=== PATIENT | female | born 1975 | race Caucasian/White ===

== ENCOUNTER 2016-10-13 15:44 | Emergency (ER) | payer BC, OTHER ==
[2016-10-13 16:00] VITALS: TEMP 98.2
--- NOTE | 2016-10-13 17:06 | RAD ---
EXAM: Elbow,Left 3 Views CLINICAL INDICATION: 41-year-old female status post fall. TECHNIQUE: Three views of the LEFT elbow were obtained in AP, lateral and oblique projections. COMPARISON: None. FINDINGS: Tiny linear lucency is identified traversing the coronoid process, however without associated joint effusion may represent artifact of positioning versus nondisplaced fracture. There is no gross fracture or dislocation. The joint spaces are preserved. No soft tissue abnormalities are seen. IMPRESSION: Tiny linear lucency at the level of the coronoid process as detailed above. Electronically signed by: Chantell Knight MD 10/13/2016 5:05 PM CDT
--- NOTE | 2016-10-13 17:50 | ED.PDOC ---
History of Present Illness - General Chief Complaint: Trauma Stated Complaint: elbow pain Time Seen by Provider: 10/13/16 17:43 Exam Limitations: no limitations - History of Present Illness Initial Comments: Jessica Gale 41 y/o female stated while walking and talking to her friend tripped on a step then fell on her left arm;No head/neck hip pain.Had been hurting on her elbow since the incident [id number]/10/17.Decided to get checked here in [place]. Occurred: yesterday Pain - Upper Extremity: moderate: Elbow, left Method of Injury: fell Improving Factors: rest Worsening Factors: movement Allergies/Adverse Reactions: Allergies Aspirin Allergy (Verified 10/13/16 16:01) Erythromycin Allergy (Verified 10/13/16 16:01) Sulfa Antibiotics Allergy (Verified 10/13/16 16:01) Home Medications: Ambulatory Orders Acetaminophen W/ Codeine [Tylenol w/Codeine 300-30 mg] 1 tab PO TID PRN #20 tab 10/13/16 Lisinopril & Hydrochlorothiazi [Lisinopril/Hctz 20-12.5 mg] 1 tab PO DAILY 10/13 Review of Systems - Review of Systems Constitutional: States: no symptoms reported EENTM: States: no symptoms reported Respiratory: States: no symptoms reported Cardiology: States: no symptoms reported Gastrointestinal/Abdominal: States: no symptoms reported Genitourinary: States: no symptoms reported Musculoskeletal: States: see HPI Skin: States: no symptoms reported Neurological: States: no symptoms reported Endocrine: States: no symptoms reported Past Medical History (General) - Patient Medical History Hx Hypertension: Yes Surgical History: no surgical history - Vaccination History Hx Tetanus, Diphtheria Vaccination: Yes Hx Influenza Vaccination: Yes - Social History Hx Tobacco Use: No Hx Alcohol Use: No Hx Substance Use: No Hx Substance Use Treatment: No Hx Depression: No - Activities of Daily Living Patient Lives Alone: No - family Hospice Agency (if applicable):: None - Female History Patient is a Female of Child Bearing Age (10 -59 yrs old): No Family Medical History - Family History Mother Family History: No Known Physical Exam - Physical Exam General Appearance: Alert, No apparent distress Eyes, Ears, Nose, Throat Exam: PERRL/EOMI, normal ENT inspection Neck: non-tender, full range of motion, supple, normal inspection Cardiovascular/Respiratory: regular rate, rhythm, no M/R/G, normal peripheral pulses, no JVD Abdominal Exam: non-tender, no organomegaly Back Exam: normal inspection, no CVA tenderness, no vertebral tenderness Shoulder Exam: normal inspection, no evidence of injury Elbow/Forearm Exam: bone tenderness, limited ROM - left elbow, soft tissue tenderness, swelling Wrist Exam: normal inspection, no evidence of injury Hand Exam: normal inspection, no evidence of injury Neuro/Tendon: normal sensation, normal motor functions, no evidence tendon injury Mental Status: alert, oriented x 3 Progress - EKG/XRAY/CT XRAY: elbow - linear lucency left elbow no fat pad sign Departure - Departure Clinical Impression: Fall against object Qualifiers: Encounter type: initial encounter Qualifier Code: (W18.09XA) Striking against other object with subsequent fall, initial encounter Contusion of elbow, left Qualifiers: Encounter type: initial encounter Qualifier Code: (S50.02XA) Contusion of left elbow, initial encounter Time of Disposition: 17:59 Disposition: Discharge to Home or Self Care Condition: Good Departure Forms: ED Discharge - Pt. Copy, Patient Portal Self Enrollment Instructions: DI for Contusion Referrals: LAURA GRIER [Primary Care Provider] - 1-2 Weeks Prescriptions: Acetaminophen W/ Codeine [Tylenol w/Codeine 300-30 mg] 1 tab PO TID PRN #20 tab PRN Reason: Pain Home Medications: Ambulatory Orders Acetaminophen W/ Codeine [Tylenol w/Codeine 300-30 mg] 1 tab PO TID PRN #20 tab 10/13/16 Lisinopril & Hydrochlorothiazi [Lisinopril/Hctz 20-12.5 mg] 1 tab PO DAILY 10/13 Additional Instructions: Follow up with your md 10/19/16 for recheck;PLEASE EXCUSE FROM WORK 10/14-2016 fell and bruised elbow unable to move it.
[2016-10-13 18:15] VITALS: BP 157/92; O2SAT 100
== END 2016-10-13 18:15 | disposition home or self-care (01) ==
LOC: ER 15:44
DX: S50.02XA Contusion of left elbow, initial encounter (principal); Z88.6 Allergy status to analgesic agent; Z88.2 Allergy status to sulfonamides; Z88.3 Allergy status to other anti-infective agents; W01.198A Fall on same level from slipping, tripping and stumbling with subsequent striking against other object, initial encounter

== ENCOUNTER 2017-07-10 12:53 | Inpatient (IN) | payer BC, OTHER ==
--- NOTE | 2017-07-10 13:52 | ED.PDOC ---
History of Present Illness - General Chief Complaint: Chest Pain/UT Stated Complaint: CHEST PAIN Time Seen by Provider: 07/10/17 13:45 Source: patient Exam Limitations: no limitations Additional Information: PT PRESENTS TO ED C/O SUBSTERNAL PAIN SINCE YESTERDAY. SHARP, NON RADIATING. PT WAS STANDING IN LINE AT THE PHARMACY YESTERDAY WHEN SHE BEGAN TO HAVE PALPITATIONS, BECAME DIAPHORETIC AND THEN EXPERIENCED A SYNCOPAL EPISODE. SHE CAME IN TODAY B/C HER CHEST PAIN HAS BEEN PERSISTENT. - History of Present Illness Timing/Duration: 1 week Severity: moderate Improving Factors: nothing Worsening Factors: nothing Associated Symptoms: chest pain, syncope Allergies/Adverse Reactions: Allergies Aspirin Allergy (Verified 10/13/16 16:01) Erythromycin Allergy (Verified 10/13/16 16:01) Sulfa Antibiotics Allergy (Verified 10/13/16 16:01) Home Medications: Ambulatory Orders Acetaminophen W/ Codeine [Tylenol w/Codeine 300-30 mg] 1 tab PO TID PRN #20 tab 10/13/16 Lisinopril & Hydrochlorothiazi [Lisinopril/Hctz 20-12.5 mg] 1 tab PO DAILY 10/13 Review of Systems - Review of Systems Constitutional: Denies: chills, fever EENTM: States: no symptoms reported Respiratory: Denies: cough, short of breath, wheezing Cardiology: States: chest pain, palpitations, syncope Gastrointestinal/Abdominal: Denies: abdominal pain, nausea, vomiting Genitourinary: States: no symptoms reported Musculoskeletal: States: no symptoms reported Skin: States: other - DIAPHORESIS Neurological: Denies: paresthesia, seizure, weakness Endocrine: States: no symptoms reported Past Medical History (General) - Patient Medical History Hx Hypertension: Yes Surgical History: other - GASTRIC SLEEVE - Vaccination History Hx Tetanus, Diphtheria Vaccination: Yes Hx Influenza Vaccination: Yes - Social History Hx Tobacco Use: No Hx Alcohol Use: No Hx Substance Use: No Hx Substance Use Treatment: No Hx Depression: No Family Medical History - Family History Mother Family History: No Known Physical Exam - Physical Exam General Appearance: No apparent distress, Well Developed, Well Nourished Eye Exam: bilateral normal Ears, Nose, Throat: hearing grossly normal, normal ENT inspection Neck: non-tender, full range of motion, supple Respiratory: lungs clear, normal breath sounds Cardiovascular/Chest: regular rate, rhythm, no murmur Gastrointestinal/Abdominal: non tender, soft, no organomegaly Extremity: normal range of motion, non-tender, normal inspection Neurologic: no motor/sensory deficits, alert, normal mood/affect, oriented x 3 Skin Exam: normal color, warm/dry Lymphatic: no adenopathy Progress - Progress Progress: 07/10/17 17:03 HAS HAD SEVERAL EPISODES OF FEELING STRANGE. BP HAS BEEN LABILE. 07/10/17 18:05 D/W ALLYN WILL ADMIT FOR OBSERVATION - EKG/XRAY/CT EKG: Sinus - RATE 90, NL AXIS, NL INTERVALS, NO ST-T WAVE CHANGES, ADRIA. NO OLD Departure - Departure Clinical Impression: Syncope Qualifiers: Encounter type: initial encounter Hypertension Qualifiers: Hypertension type: essential hypertension Qualified Code(s): I10 - Essential ( primary) hypertension Time of Disposition: 18:08 Disposition: Admit Patient Condition: Good Departure Forms: ED Discharge - Pt. Copy, Patient Portal Self Enrollment Instructions: DI for Chest Pain Referrals: LAURA GRIER [Primary Care Provider] - 1-2 Weeks Home Medications: Ambulatory Orders Acetaminophen W/ Codeine [Tylenol w/Codeine 300-30 mg] 1 tab PO TID PRN #20 tab 10/13/16 Lisinopril & Hydrochlorothiazi [Lisinopril/Hctz 20-12.5 mg] 1 tab PO DAILY 10/13
[2017-07-10] MEDS ORDERED: ACETAMINOPHEN W/COD #3 TAB 1 EA TAB PO ONE (17:58)
--- NOTE | 2017-07-10 19:17 | HP ---
SUPERVISING PHYSICIAN: Cristian May MD CHIEF COMPLAINT: Chest pain. HISTORY OF PRESENT ILLNESS: Ms. Gale is a 42 year-old female patient who presented to the Emergency Department today complaining of substernal chest pain that has been going on for well over a week which intensified yesterday which she noticed was on the right sharp and was nonradiating. The patient noted that she was standing in line at a pharmacy in [facility] yesterday when she began to have some palpitations, became diaphoretic and then experienced a syncopal episode. She presented today to the Emergency Room due to her chest pain that has been persistent. Of significance in her medical history is that she had had a gastric sleeve procedure done in 2014. Her laboratory studies showed she was anemic with a hemoglobin of 8.2 and hematocrit 20.4. Chemistries showed normal electrolytes with a just slightly elevated BUN and creatinine ratio with BUN of 12 and creatinine 0.59, serum osmolality 274. Initial cardiac enzymes showed a less than 0.02 on troponin, her serum HCG was negative. Urinalysis is pending. Chest x-ray is pending Her EKG initially in the Emergency Department showed a normal sinus rhythm with a rate of [address] or T-wave changes.. Her vital signs showed that she was hypertensive initially on admission with a blood pressure of 157/97. Shortly after venting her for over two hours her blood pressure had gone down to 104/53 but then rebounded and she became hypertensive of 150/108. Heart rate never changed, it was in the 80s. Saturation was 100% on room air. Given her degree of anemia and previous syncopal episode and reported chest pains that have been occurring well over two days, Dr. Fernández requested the patient be placed in observation for further cardiac telemetry and further evaluation and studies. She was placed in observation in stable condition. PAST MEDICAL HISTORY: 1. Hypertension. 2. Diabetes mellitus. 3. Morbid obesity treated with gastric sleep in 2014 with 130 pound weight loss. PAST SURGICAL HISTORY: 1. Two laminectomies. 2. Pain stimulator implantation removed secondary to an infection. CURRENT MEDICATIONS: 1. Zanaflex 8 mg 3 times a day as needed. 2. Tramadol 50 to 100 mg q.i.d. as needed. 3. Oxycodone with acetaminophen 1 or 2 tablets q.i.d. p.r.n. ALLERGIES: ASPIRIN, ERYTHROMYCIN, SULFA ANTIBIOTICS FAMILY HISTORY: Cancer, hypertension, diabetes. 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 She has never smoked tobacco or drank alcohol and denies illicit drug use. Her last menstrual period current. REVIEW OF SYSTEMS: CONSTITUTIONAL: Denies chills or fever. HEENT: Reports a headache, no nasal congestion, sore throat or vision changes. CHEST: Denies cough, shortness of breath or wheezing. CARDIOVASCULAR: As noted in history of present illness. Substernal chest pain with syncopal episode and some palpitations. GASTROINTESTINAL: Denies abdominal pain, nausea or vomiting. GENITOURINARY: Denies dysuria, hematuria or other urinary symptoms. INTEGUMENT: As noted in history of present illness. Some diaphoresis prior to syncopal episode. NEUROLOGICAL: Denies paresthesias, seizures or weakness. PHYSICAL EXAMINATION: VITAL SIGNS: Initial vital signs in Emergency Department showed a blood pressure of 157/97, heart rate 83, temperature 97.6 with respirations 16. Saturation 100% on room air. Admission weight 72.1 kg. GENERAL: On admission to the medical/surgical floor the patient appears to be comfortable and in no acute distress, well-nourished, well-hydrated. HEENT: Tympanic membranes clear bilaterally. Oropharynx pink, moist with no lesions. NECK: Supple, non-tender with full range of motion. No jugular venous distention. CHEST: Lungs are clear to auscultation without any rhonchi, rales, or wheezes. CARDIOVASCULAR: Regular rate and rhythm with on appreciable murmurs, rubs, or gallops. ABDOMEN: Soft, non-tender, positive bowel sounds. EXTREMITIES: No cyanosis, clubbing, or edema. NEUROLOGIC: Cranial nerves II through XII grossly intact. She is alert and oriented x 3. Facial features are symmetrical. Extraocular movement within normal limits. There is no notable nystagmus. INTEGUMENT: [place], warm and dry. LABORATORY: CBC shows normal white count of 5,500, hemoglobin low at 8.2, hematocrit 28.4, RBC indices indicate microcytic hyperchromic presentation. Chemistries show normal electrolytes. Potassium 4.2, BUN 12, creatinine 0.59, glucose 78, calcium 9.2. Liver functions all showed to be within normal limits. Initial troponin less than 0.02 and serum hCG was negative. Urinalysis pending. RADIOLOGY: Chest x-ray pending. ASSESSMENT: 1. Microcytic hypochromic anemia likely chronic due to iron-deficiency anemia secondary to gastric sleeve procedure in 2014 with patient having no mention of bloody stools or melanotic stools. 2. Syncopal episode possibly related to underlying anemia. 3. Chest pains requiring rule out acute ischemic event with no indication of EKG changes or abnormal troponin with patient showing a labile blood pressure possibly secondary to ongoing anemia. 4. Chronic back pain on multiple opioid medication. 5. History of past hypertension prior to gastric sleeve procedure having on lisinopril since weight loss of well over 130 pounds. 6. History of diabetes mellitus type 2 on oral therapy, improved after gastric sleeve procedure with weight loss of 130 pounds. PLAN: The patient will be placed in observation for continuation of workup in regards to her anemia. I went ahead and ordered iron studies, TIBC, ferritin transparent levels to further assess for iron-deficiency anemia. Her initial cardiac enzymes were negative. Will repeat these every 6 hours times 2 along with EKGs. I will start her on a Nitro patch to help control her hypertension. Should this show minimally responsive, will start her on some lisinopril 10 mg p.o. as well as use Clonidine as needed for her transient hypertension. Will plan to reassess in the morning with laboratory studies to include CBC and CMP. Anticipate length of stay to be 1 to 2 days. Until clinically stable and able to be discharged, we will continue to monitor and treat appropriately'. #[id number] [facility]
[2017-07-10] MEDS ORDERED: ASPIRIN (CHEWABLE) 81 MG TAB PO ONE (19:33)
[2017-07-10] MEDS ORDERED: ACETAMINOPHEN 325 MG TAB PO PRN (19:33)
[2017-07-10] MEDS ORDERED: MORPHINE SULFATE INJ 10 MG/ML VIAL IV PRN (19:33)
[2017-07-10] MEDS ORDERED: SODIUM CHLORIDE 0.9% (FLUSH) 10 ML SYG IV PRN (19:33)
[2017-07-10] MEDS ORDERED: NITROGLYCERIN 0.4 MG 25 EA TAB SL PRN (19:33)
[2017-07-10] MEDS ORDERED: NITROGLYCERIN 0.2 MG/HR PATCH TD SCH (20:00)
[2017-07-10] MEDS ORDERED: IV SET AND CAP CHANGE INJ INJ SCH (20:00)
[2017-07-10] MEDS ORDERED: NITROGLYCERIN 0.2 MG/HR PATCH TD ONE (21:25)
[2017-07-10] MEDS: SODIUM CHLORIDE 0.9% (FLUSH) 10 ML SYG IV SCH (21:36)
[2017-07-10] MEDS: KCL 20MEQ/0.45% NS 1,000 ML IVS PRN (21:37)
[2017-07-10] MEDS ORDERED: traMADol HCL 50 MG TAB PO PRN (22:57)
[2017-07-10] MEDS ORDERED: ONDANSETRON INJ 4 MG/2 ML VIAL ONE (23:05)
[2017-07-10] MEDS ORDERED: LISINOPRIL 10 MG TAB ONE (23:05)
--- NOTE | 2017-07-10 23:12 | PCM.CORE ---
Physician DVT/VTE - Nurse DVT Assessment & Total Each Risk Factor Represents 3 Points: Hx of DVT/PE Each Risk Factor Represents 1 Point: Age 41-60 Each Risk Factor is 1 Point: Obesity (BMI >25) DVT Assessment Score: 5 - 3-4 High Risk Treatments: Early Ambulation *, Sequential Compression Device Pharmacological: Enoxaparin 40 mg SQ Daily
[2017-07-10] MEDS: ONDANSETRON INJ 4 MG/2 ML VIAL IV PRN (23:29)
[2017-07-10] MEDS ORDERED: ENOXAPARIN SODIUM 40 MG/0.4 ML SYG SUBCU SCH (23:30)
[2017-07-10] MEDS: LISINOPRIL 10 MG TAB PO SCH (23:33)
[2017-07-10] MEDS: tiZANidine 4 MG TAB PO PRN (23:33)
[2017-07-11] MEDS: ACETAMINOPHEN PO PRN ×3 (02:31→16:34)
[2017-07-11] MEDS: [UNRECOGNIZED DRUG - OTHER] PO PRN ×3 (02:31→16:34)
[2017-07-11] MEDS: OXYCODONE PO PRN ×3 (02:31→16:34)
[2017-07-11] MEDS ORDERED: diphenhydrAMINE HCL 50 MG/ML VIAL IV ONE ×2 (05:37→07:43)
[2017-07-11] MEDS ORDERED: ACETAMINOPHEN 325 MG TAB PO ONE ×2 (05:37→07:42)
[2017-07-11] MEDS ORDERED: SODIUM CHLORIDE 0.9% 500ML 500 ML IVS SCH (06:00)
--- NOTE | 2017-07-11 07:14 | RAD ---
EXAM: Two view chest. INDICATION: Chest pain. COMPARISON: Chest x-ray: None. FINDINGS: Cardiac silhouette: Unremarkable. Keysha: Unremarkable. Lobar consolidation: None. Pleural effusion: None. Pneumothorax: None. Other: None. Bones: Unremarkable. Other: None. IMPRESSION: 1. No acute cardiopulmonary process. Electronically signed by: Oral Prakash MD 07/11/2017 7:13 AM [facility] Workstation: [id number]
[2017-07-11] MEDS ORDERED: diphenhydrAMINE HCL 50 MG/ML VIAL ONE (07:20)
[2017-07-11] MEDS: SODIUM CHLORIDE 0.9% (FLUSH) 10 ML SYG IV SCH ×2 (08:28→20:32)
[2017-07-11] MEDS ORDERED: ASPIRIN TABLET 325 MG TAB PO SCH (09:00)
[2017-07-11] MEDS: KCL 20MEQ/0.45% NS 1,000 ML IVS PRN ×2 (09:56→22:36)
[2017-07-11] MEDS: ONDANSETRON INJ 4 MG/2 ML VIAL IV PRN ×2 (14:19→20:32)
--- NOTE | 2017-07-11 15:29 | PN ---
DATE: 07-11-17 SUPERVISING PHYSICIAN: Cristian May MD SUBJECTIVE: The patient is lying in bed. She just complained earlier about feeling slightly nauseated and she was tingling all over. She denies any chest pain but she felt funny like her blood sugar was low. Her blood sugar was checked, it was 83. She has not eaten much since her admission as she feels quite nauseated. She is also concerned that she does not have a PCP here in [place] and she would like to get one as she knows she needs close followup with her health issues. OBJECTIVE: She is afebrile. Hear rate 73, blood pressure 125/75, respiratory rate 16, 02 saturation 100% on room air. RESPIRATORY is essentially clear to auscultation bilaterally. CARDIAC: Regular rate and rhythm. ABDOMEN: Soft, nondisplaced, non-tender. Bowel sounds are positive. EXTREMITIES: No cyanosis, clubbing, or edema. NEURO: She is awake, alert, and oriented x3. LABORATORY: Electrolytes are basically wrinkle with her serum osmolality being slightly low at 274.3 and a calcium of 8.1. Magnesium is 1.8. Ferritin is 1. Lipid panel is within normal limits. Third troponin is less than 0.02. WBC 6.3 , hemoglobin this morning was 6.5, hematocrit 22.5. Urine culture is pending. Chest x-ray this morning showed no acute cardiopulmonary process. All other labs and films have been reviewed via the EMR. ASSESSMENT: 1. Microcytic hyperchromic anemia likely chronic due to iron-deficiency anemia secondary to gastric sleeve procedure in 2014. The patient denies having and bloody or melanotic stools. 2. Syncopal episodes possibly related to underlying anemia. 3. Chest pains requiring rule out acute ischemic event with no EKG changes or abnormal troponins and patient showing a labile blood pressure possibly secondary to ongoing anemia. 4. Chronic back pain on multiple opioid medication. 5. History of past hypertension prior to gastric sleeve procedure having been on lisinopril and has since lost well over 130 pounds. 6. History of diabetes mellitus type 2 on oral therapy that improved after gastric sleeve procedure with weight loss of 130 pounds. PLAN: We will continue present supportive care. I have ordered labs for in the morning. I have also consulted [employer] to see if we can get her a PCP for followup. I have ordered two units of packed red blood cells to be given today. I am sure she can go to [facility] after discharge and may be beneficial but she sees Dr. Ruiz to review her anemia panel as well as well as seeing her gastric sleeve surgeon, Dr. Hinojosa in [place] to see her in case of complications from the gastric sleeve. She will also need a GI consultation at some point but I think Ashish would be the first person that we need to contact since he did her surgery. At this point, I am going to continue her IV fluids at 80 because she is not eating much. Hopefully, her appetite will increase once her blood is infused. I believe most of her chest pain and her symptoms are due to her anemia. Otherwise, we will continue to monitor the patient closely and follow as needed. Dr. May is the collaborating physician and available for consultation. #[id number] [facility]
[2017-07-11] MEDS ORDERED: LISINOPRIL 10 MG TAB ONE (20:11)
[2017-07-11] MEDS ORDERED: ENOXAPARIN SODIUM 40 MG/0.4 ML SYG SUBCU SCH (21:00)
[2017-07-11] MEDS: tiZANidine 4 MG TAB PO PRN (22:36)
[2017-07-11] MEDS: LISINOPRIL 10 MG TAB PO SCH (22:36)
[2017-07-12] MEDS: ACETAMINOPHEN PO PRN ×3 (05:32→22:08)
[2017-07-12] MEDS: [UNRECOGNIZED DRUG - OTHER] PO PRN ×3 (05:32→22:08)
[2017-07-12] MEDS: OXYCODONE PO PRN ×3 (05:32→22:08)
[2017-07-12] MEDS: ONDANSETRON INJ 4 MG/2 ML VIAL IV PRN ×2 (07:49→15:11)
[2017-07-12] MEDS: LISINOPRIL 10 MG TAB PO SCH (08:00)
[2017-07-12] MEDS: SODIUM CHLORIDE 0.9% (FLUSH) 10 ML SYG IV SCH ×2 (08:08→20:39)
[2017-07-12] MEDS: KCL 20MEQ/0.45% NS 1,000 ML IVS PRN ×2 (10:17→22:11)
[2017-07-12] MEDS: PANTOPRAZOLE SODIUM IV 40 MG VIAL IV SCH (10:17)
--- NOTE | 2017-07-12 18:57 | PN ---
DATE: 07/12/17 SUPERVISING PHYSICIAN: Donato Mendez M.D. SUBJECTIVE: Ms. Gale is currently lying in bed at this time without distress. She said she does feel a little bit better, however does not feel 100 % herself at this time. There were no significant overnight events. She did receive packed red blood cells yesterday and I did discuss her followup hemoglobins with her. OBJECTIVE: Blood pressure 140/67, heart rate 71, respiratory rate 16, temperature 98.3, oxygen saturation 100%. GENERAL: Ms. Gale is a 42 year-old female in no active distress at this time. HEENT: Head is normocephalic and atraumatic. EYES: Pupils are equal and reactive. NOSE: No drainage. THROAT: Moist buccal mucosa. NECK: Supple. Midline trachea. No jugular venous distention. CHEST: Symmetrical with equal rise and fall of the chest with inspiration and expiration. LUNGS: Lung sounds are clear to auscultation bilaterally. CARDIAC: Regular rate and rhythm. Normal S1 and S2. ABDOMEN: Soft. Positive bowel sounds. No change to palpation. GENITOURINARY: Exam is deferred. EXTREMITIES: Lower extremities with no edema. NEUROLOGIC: The patient is awake and alert at this time. LABORATORY: CBC which showed hemoglobin 9.9 and hematocrit 32.3. Chemistry showed sodium 139, potassium 4.5, chloride 107, CO2 is 27, BUN 16, creatinine 0.65, glucose 106, calcium 8.4. Urine culture has still not resulted in any kind of bacterial growth. ASSESSMENT: 1. Anemia. 2. Syncope. 3. Chest pain. 4. History of gastric sleeve surgery. PLAN: Hemoglobin is stable after her transfusion. I will keep her another day and recheck her hemoglobin. If it remains stable, will likely discharge. Additionally, I have notified Social Work to assist us with finding her a primary care physician in this area. She does not currently have one. Additionally, I feel like she needs to followup with her surgeon. She may need also a GI consultation with an EGD to ensure she does not have any sort of anastomotic ulcerations. Dr. Mendez is the collaborating physician. #[id number] [facility]
[2017-07-12] MEDS ORDERED: PROMETHAZINE HCL 25 MG TAB PO PRN (20:33)
[2017-07-12] MEDS: tiZANidine 4 MG TAB PO PRN (22:09)
[2017-07-13] MEDS: PANTOPRAZOLE SODIUM IV 40 MG VIAL IV SCH (08:05)
[2017-07-13] MEDS: [UNRECOGNIZED DRUG - OTHER] PO PRN (08:12)
[2017-07-13] MEDS: ONDANSETRON INJ 4 MG/2 ML VIAL IV PRN (08:12)
[2017-07-13] MEDS: OXYCODONE PO PRN (08:12)
[2017-07-13] MEDS: ACETAMINOPHEN PO PRN (08:12)
[2017-07-13] MEDS: LISINOPRIL 10 MG TAB PO SCH (08:18)
[2017-07-13] MEDS: SODIUM CHLORIDE 0.9% (FLUSH) 10 ML SYG IV SCH (08:20)
[2017-07-13 10:34] VITALS: BP 121/66; TEMP 98.1; O2SAT 100
[2017-07-13] MEDS ORDERED: INFLUENZA VIRUS VACC (ADULT) 0.5 ML SYG IM ONE (11:21)
--- NOTE | 2017-07-13 15:19 | DS ---
SUPERVISING PHYSICIAN: Donato Mendez MD ADMISSION DIAGNOSIS: 1. Anemia. 2. Syncope. 3. Chest pain. 4. History of hypertension. 5. History of diabetes. DISCHARGE DIAGNOSIS: 1. Anemia, improved. 2. Syncopal episode, no further episodes as an inpatient. 3. Chest pain, ruled out acute coronary syndrome. 4. Hypertension, improved. HOSPITAL COURSE: This is a 42-year-old female who was admitted on 07/10/17 with anemia. She presented to the Emergency Room with substernal chest pain which had been going on for a week prior to admission. She had stated she was standing in line at the pharmacy at [facility] and began to have some palpitations , became diaphoretic and then passed out. When she came to the Emergency Room, her workup included EKG which did show any acute findings. Troponin was negative. She did have CBC as well which showed hemoglobin 8.2 and her chemistry was pretty unremarkable. She was hypertensive at the time, but this improved over the admission. Recheck of her hemoglobin showed that it dropped actually to 6.5. Given the drop in hemoglobin, she was given 2 units of packed red blood cells. Her post transfusion hemoglobin was 9.9 and then recheck the next morning was 9.9. I did keep her an additional day just to ensure that she did not have any drop in hemoglobin and on the day of discharge on 07/13/17, it was 9.5. Her blood pressure, as stated before, improved throughout the admission. Therefore, she was discharged in stable condition on 07/13/17. DISCHARGE CONDITION: Stable and well. DISCHARGE MEDICATIONS: 1. Zofran p.r.n. 2. vitamin with iron. DISCHARGE INSTRUCTIONS: Followup appointment which was made for her at the [facility]. Additionally, she was instructed she will likely need to see a radar systems engineer for her iron deficiency anemia. She was also instructed to make a followup appointment with her surgeon. She may need to get EGD by natural resources specialist at some point as well. [facility][id number] [facility]
== END 2017-07-13 11:55 | disposition home or self-care (01) | DRG 812 ==
LOC: ER 12:53 → MS 19:16 → OBSVTOIN 07-11 10:07
PROVIDERS: ADMIT Nurse Practitioner Family; ATTEND Nurse Practitioner
PROC: 30233N1 Transfusion of Nonautologous Red Blood Cells into Peripheral Vein, Percutaneous Approach (ICD-10-PCS; principal; 2017-07-11)
DX: D50.9 Iron deficiency anemia, unspecified (principal); R55 Syncope and collapse; R07.9 Chest pain, unspecified; G89.29 Other chronic pain; M54.9 Dorsalgia, unspecified; I10 Essential (primary) hypertension; E11.9 Type 2 diabetes mellitus without complications; Z79.84 Long term (current) use of oral hypoglycemic drugs; Z98.84 Bariatric surgery status; Z79.891 Long term (current) use of opiate analgesic; Z88.6 Allergy status to analgesic agent; Z88.1 Allergy status to other antibiotic agents; Z88.2 Allergy status to sulfonamides; Z79.899 Other long term (current) drug therapy

== ENCOUNTER 2017-11-17 08:30 | Emergency (ER) | payer OTHER ==
[2017-11-17 09:25] VITALS: TEMP 98.3
--- NOTE | 2017-11-17 09:44 | ED.PDOC ---
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[place].Had also weird chest pains yesterday but went away.Had previous episode in the past.Stated had MVP and HTN Timing/Duration: 1-3 hours Severity: moderate Improving Factors: nothing Worsening Factors: nothing Associated Symptoms: other - see hpi Allergies/Adverse Reactions: Allergies Aspirin Allergy (Verified 10/13/16 16:01) Erythromycin Allergy (Verified 10/13/16 16:01) Sulfa Antibiotics Allergy (Verified 10/13/16 16:01) Home Medications: Ambulatory Orders Lisinopril & Hydrochlorothiazi [Lisinopril/Hctz 20-12.5 mg] 1 tab PO DAILY 10/13 Oxycodone W/ Acetaminophen [Oxycodone/Acetaminophen] 1 - 2 tab PO QID PRN MDD 3000mg 07/10/17 Tramadol HCl 50 - 100 mg PO QID PRN 07/10/17 tiZANidine [Zanaflex] 8 mg PO TID PRN 07/10/17 Ondansetron [Zofran Odt] 8 mg PO TID PRN #30 tab 07/13/17 Vitamins W/ Iron Carb [One A Day Womens 28-0.8-235 mg] 1 cap PO QAM #30 cap 07/13/17 Review of Systems - Review of Systems Constitutional: States: no symptoms reported EENTM: States: no symptoms reported Respiratory: States: no symptoms reported Cardiology: States: see HPI Gastrointestinal/Abdominal: States: no symptoms reported Genitourinary: States: no symptoms reported Musculoskeletal: States: no symptoms reported Skin: States: no symptoms reported Neurological: States: see HPI Hematologic/Lymphatic: States: no symptoms reported All other Systems: Reviewed and Negative, No Change from Baseline Past Medical History (General) - Patient Medical History Hx Seizures: No Hx Stroke: No Hx Asthma: Yes Hx of COPD: No Hx Congestive Heart Failure: No Hx Pacemaker: No Hx Hypertension: Yes Hx Diabetes: No Hx MRSA: No Surgical History: cholecystectomy, other - gastric sleeve,back - Vaccination History Hx Tetanus, Diphtheria Vaccination: Yes Hx Influenza Vaccination: Yes - 2017 - Social History Hx Tobacco Use: No Hx Alcohol Use: No Hx Substance Use: No Hx Substance Use Treatment: No Hx Depression: No Hx Physical Abuse: No Hx Emotional Abuse: No - Female History Patient is a Female of Child Bearing Age (10 -59 yrs old): Yes Patient : No Family Medical History - Family History Mother Family History: No Known Hx Family Hypertension: Yes Hx Cardiac Disease: Yes Physical Exam - Physical Exam General Appearance: Alert, Comfortable, No apparent distress Eye Exam: bilateral normal Ears, Nose, Throat: hearing grossly normal, normal ENT inspection, normal pharynx Neck: non-tender, full range of motion, supple, normal inspection Respiratory: chest non-tender, lungs clear, normal breath sounds, no respiratory distress Cardiovascular/Chest: normal peripheral pulses, regular rate, rhythm, no murmur Peripheral Pulses: radial,right: 2+, radial,left: 2+ Gastrointestinal/Abdominal: normal bowel sounds, non tender, soft, no organomegaly Back Exam: normal inspection, no CVA tenderness, no vertebral tenderness Extremity: normal inspection, no pedal edema, no calf tenderness 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, no motor/sensory deficits, alert, normal mood/affect, oriented x 3 Skin Exam: normal color, warm/dry Progress - Progress Progress: 11/17/17 11:18 Vital Signs - 24 hr 11/17/17 09:19 Temperature 98.3 F Pulse Rate [ 76 Left Radial] Respiratory 20 Rate Blood Pressure 119/74 [Left Arm] O2 Sat by Pulse 97 Oximetry - Results/Orders Results/Orders: 11/17/17 09:28 Telemetry .ONCE EKG Stat Pulse Ox Stat 11/17/17 09:30 Pulse Oximetry Assessment DAILY 11/17/17 09:41 URINE DRUG SCREEN, 7 ASSAY Stat HCG,QUALITATIVE URINE Stat URINALYSIS Stat Laboratory Results - last 24 hr 11/17/17 11/17/17 09:28 09:41 WBC 11.7 H RBC 3.97 L Hgb 9.1 L Hct 29.3 L MCV 73.7 L MCH 22.9 L MCHC 31.0 L RDW 15.6 H Plt Count 304 MPV 8.0 Absolute Neuts (auto) 5.70 Absolute Lymphs (auto) 4.80 H Absolute Monos (auto) 0.90 H Absolute Eos (auto) 0.20 Absolute Basos (auto) 0.10 Neutrophils % 48.6 Lymphocytes % 41.1 Monocytes % 7.6 Eosinophils % 2.0 Basophils % 0.7 PT 12.0 INR 1.030 PTT (SP) 25.8 D-Dimer, Quantitative < 200 Sodium 137 Potassium 3.9 Chloride 100 L Carbon Dioxide 28 Anion Gap 12.9 BUN 18 Creatinine 1.14 BUN/Creatinine Ratio 15.8 Random Glucose 96 Serum Osmolality 275.6 Calcium 9.0 Magnesium 2.0 Creatine Kinase 52 CK-MB (CK-2) 1.6 CK-MB (CK-2) % Not Reportable Troponin I < 0.02 B-Natriuretic Peptide 33.5 - EKG/XRAY/CT EKG: Sinus Comments: HR 72;junctional rhythm XRAY: chest - no acute abnormalitiesnoted CT Ordered: Yes - head no acute abnormalities Departure - Departure Clinical Impression: History of weight loss surgery Syncope Qualifiers: Syncope type: unspecified Qualified Code(s): R55 - Syncope and collapse Anemia Qualifiers: Anemia type: iron deficiency Iron deficiency anemia type: other iron deficiency Qualified Code(s): D50.8 - Other iron deficiency anemias Time of Disposition: 11:45 Disposition: Discharge to Home or Self Care Condition: Fair Departure Forms: ED Discharge - Pt. Copy, Patient Portal Self Enrollment Referrals: LAURA GRIER [Primary Care Provider] - 1-2 Weeks Home Medications: Ambulatory Orders Lisinopril & Hydrochlorothiazi [Lisinopril/Hctz 20-12.5 mg] 1 tab PO DAILY 10/13 Oxycodone W/ Acetaminophen [Oxycodone/Acetaminophen] 1 - 2 tab PO QID PRN MDD 3000mg 07/10/17 Tramadol HCl 50 - 100 mg PO QID PRN 07/10/17 tiZANidine [Zanaflex] 8 mg PO TID PRN 07/10/17 Ondansetron [Zofran Odt] 8 mg PO TID PRN #30 tab 07/13/17 Vitamins W/ Iron Carb [One A Day Womens 28-0.8-235 mg] 1 cap PO QAM #30 cap 07/13/17 Additional Instructions: Return TO ER NEEDED;Follow up with you primary Md 18 Nov 2017 for cardiology/ neurologist referral;Continue with all home meds
--- NOTE | 2017-11-17 09:57 | RAD ---
EXAM DESCRIPTION: Chest,1 View CLINICAL HISTORY: 42 years Female, chest discomfort COMPARISON: 07/11/2017 IMPRESSION: Heart size and pulmonary vascularity are within normal limits. The lung apices are not fully included on the [id number]. No visualized airspace consolidation, pleural effusion, or pneumothorax. Mild thoracolumbar scoliosis. No acute osseous abnormality. Electronically signed by: Berhane Walsh MD 11/17/2017 9:56 AM CDT
--- NOTE | 2017-11-17 11:27 | CT ---
EXAM DESCRIPTION: Head CLINICAL HISTORY: syncope COMPARISON: None available TECHNIQUE: Noncontrast head CT was performed with routine protocol. FINDINGS: Normal peng-white matter differentiation. Ventricles and sulci are normal for age. No high density hemorrhage, focal edema or shift of the midline. No sulcal effacement. Normal orbital contents. Basilar cisterns appear clear. Intact calvarium with no fracture or lytic lesion. Normal aeration of tympanic cavities and mastoid air cells. No fluid levels in the paranasal sinuses. Skull base appears intact. Symmetrical internal auditory canals. Coronal and sagittal reformatted images confirm the findings. IMPRESSION: No acute intracranial pathologic process. This exam was performed according to our departmental dose-optimization program, which includes automated exposure control, adjustment of the mA and/or kV according to patient size and/or use of iterative reconstruction technique. Total DLP equals 752.48 mGycm. Electronically signed by: Gt Johnson MD 11/17/2017 11:26 AM CDT
[2017-11-17 14:47] VITALS: BP 108/50; O2SAT 97
== END 2017-11-17 12:20 | disposition home or self-care (01) ==
LOC: ER 08:30
DX: R55 Syncope and collapse (principal); D50.8 Other iron deficiency anemias; J45.909 Unspecified asthma, uncomplicated; I10 Essential (primary) hypertension; Z98.84 Bariatric surgery status; I34.1 Nonrheumatic mitral (valve) prolapse